=== PATIENT | male | born 1950 | race Caucasian/White ===

== ENCOUNTER 2022-09-21 19:54 | Emergency (ER) | payer OTHER, MEDICARE ==
[~2022-09-21] VITALS: Ht 174 cm; Wt 81.6 kg
[2022-09-21 20:01] VITALS: BP_SYST 163
--- NOTE | 2022-09-21 20:27 | NUR ---
Patient to ER bed 7 to gown for evaluation. Side rails up.
--- NOTE | 2022-09-21 20:27 | NUR ---
ER at bedside examining patient.
--- NOTE | 2022-09-21 20:27 | NUR ---
Pt C/O neck soreness s/p fall from Ladder AOX4 VSS Able to make needs known Family bedside Will continue to monitor
[2022-09-21 20:29] VITALS: BP_SYST 126
--- NOTE | 2022-09-21 21:39 | NUR ---
CT spine negative for acute pathology Pt DC per MD's order DC instructions given to pt Pt verbalized understsndings AOX4 VSS Able to make needs known Pt exited Ed in stable gait
== END 2022-09-21 21:39 | disposition home or self-care (01) ==
LOC: SED 19:54
DX: S13.4XXA Sprain of ligaments of cervical spine, initial encounter (principal); S00.93XA Contusion of unspecified part of head, initial encounter; J44.9 Chronic obstructive pulmonary disease, unspecified; W11.XXXA Fall on and from ladder, initial encounter; Y93.89 Activity, other specified; Y92.89 Other specified places as the place of occurrence of the external cause; Y99.8 Other external cause status
CPT/HCPCS: 70450-TC; 72125-TC; 76376; 99284

== ENCOUNTER 2024-03-07 08:42 | Emergency (ER) | payer OTHER, MEDICARE ==
[~2024-03-07] VITALS: Ht 172.7 cm; Wt 81.6 kg
[2024-03-07 08:45] VITALS: BP_SYST 137; PULSE 82; RESP 18; TEMP 98.1; O2SAT 94
[2024-03-07] MEDS ORDERED: CEPH-548 PO (09:25)
[2024-03-07 09:50] VITALS: BP_SYST 141; PULSE 66; RESP 20; TEMP 97.8; O2SAT 94
== END 2024-03-07 09:50 | disposition home or self-care (01) ==
LOC: SED 08:42
DX: S92.535A Nondisplaced fracture of distal phalanx of left lesser toe(s), initial encounter for closed fracture (principal); J44.9 Chronic obstructive pulmonary disease, unspecified; Z79.2 Long term (current) use of antibiotics; W22.8XXA Striking against or struck by other objects, initial encounter; Y93.89 Activity, other specified; Y92.89 Other specified places as the place of occurrence of the external cause; Y99.8 Other external cause status
CPT/HCPCS: 99283

== ENCOUNTER 2024-05-22 10:04 | Inpatient (IN) | payer OTHER, MEDICARE ==
[~2024-05-22] VITALS: Ht 172.7 cm; Wt 85.3 kg
[~2024-05-22 10:04] MED LIST: CEPH-548 PO
[2024-05-22 10:20] VITALS: BP_SYST 145; PULSE 66; RESP 18; TEMP 98.4; O2SAT 95
[2024-05-22 11:03] LABS: BASOPHILS # (AUTO) 0.1 K/uL (0.0-0.2); BASOPHILS % (AUTO) 1.4 % (0.0-2.0); EOSINOPHILS # (AUTO) 0.4 K/uL (0.0-0.4); EOSINOPHILS % (AUTO) 5.9 % (0.0-4.0); HEMATOCRIT 42.2 % (36-54); LYMPHOCYTES # (AUTO) 1.7 K/uL (1.0-5.5); LYMPHOCYTES % (AUTO) 24.4 % (20.5-51.5); MEAN CORPUSCULAR HEMOGLOBIN 28 pg (27-31); MEAN CORPUSCULAR HGB CONC 33 % (32-36); MEAN CORPUSCULAR VOLUME 84 fL (79.0-98.0); MONOCYTES # (AUTO) 0.9 K/uL (0.0-1.0); MONOCYTES % (AUTO) 12.1 % (1.7-9.3); NEUTROPHILS % (AUTO) 56.2 % (40.0-70.0); PLATELET COUNT (AUTO) 323 K/uL (130-430); RED BLOOD CELL COUNT(AUTO) 5.05 MIL/uL (4.2-6.2); RED CELL DISTRIBUTION WIDTH 15.6 % (9.0-15.0); WHITE BLOOD COUNT (AUTO) 7.1 K/uL (4.8-10.8)
[2024-05-22] MEDS: cefTRIAXone 1 GM IVPB PREMIX 50 ML IV ONE (11:15)
[2024-05-22 11:21] LABS: ANION GAP 8 (5-15); CALCIUM 8.9 mg/dL (8.4-11.0); CARBON DIOXIDE 27 mmol/L (23-29); CHLORIDE 107 mmol/L (98-107); CREATININE 0.99 mg/dL (0.55-1.30); GLUCOSE 93 mg/dL (74-106); POTASSIUM 4.1 mmol/L (3.5-5.1); SODIUM SERUM 142 mmol/L (136-145); UREA NITROGEN, BLOOD 14 mg/dL (8-21)
[2024-05-22] MEDS ORDERED: MORPHINE 2 MG/ML INJ. SYRINGE IVP PRN (13:15)
[2024-05-22] MEDS ORDERED: ONDANSETRON HCL 4 MG/2 ML VIAL IVP PRN (13:15)
[2024-05-22] MEDS ORDERED: MONT-40 PO (14:06)
[2024-05-22] MEDS ORDERED: ROSU40TA PO (14:08)
[2024-05-22] MEDS ORDERED: FLUT1DIS5 IH (14:09)
[2024-05-22 16:00] VITALS: BP_SYST 127; PULSE 60; RESP 18; TEMP 97.9; O2SAT 95
[2024-05-22 17:47] VITALS: BP_SYST 127; PULSE 60; RESP 18; TEMP 97.9; O2SAT 95
[2024-05-22] MEDS: PIPERACILLIN/TAZO 3.375/DEX-IS 50 ML IV SCH (18:35)
[2024-05-22 20:00] VITALS: BP_SYST 126; RESP 20; TEMP 97.9; O2SAT 93
[2024-05-22] MEDS: HEPARIN SODIUM,PORCINE 5,000 UNITS/ML VIAL SUBCUT SCH (21:00)
[2024-05-22] MEDS: ceFAZolin SODIUM 2 GM in D5W 100 ML IV SCH (23:44)
[2024-05-23] VITALS: BP_SYST 128; PULSE 60; RESP 20; TEMP 97.5; O2SAT 92
[2024-05-23 06:33] LABS: BASOPHILS # (AUTO) 0.1 K/uL (0.0-0.2); BASOPHILS % (AUTO) 1.3 % (0.0-2.0); EOSINOPHILS # (AUTO) 0.4 K/uL (0.0-0.4); EOSINOPHILS % (AUTO) 6.6 % (0.0-4.0); HEMATOCRIT 38.5 % (36-54); HEMOGLOBIN 12.9 g/dL (14.0-18.0); LYMPHOCYTES # (AUTO) 1.6 K/uL (1.0-5.5); LYMPHOCYTES % (AUTO) 25.5 % (20.5-51.5); MEAN CORPUSCULAR HEMOGLOBIN 28 pg (27-31); MEAN CORPUSCULAR HGB CONC 34 % (32-36); MEAN CORPUSCULAR VOLUME 83 fL (79.0-98.0); MONOCYTES # (AUTO) 0.7 K/uL (0.0-1.0); MONOCYTES % (AUTO) 10.2 % (1.7-9.3); NEUTROPHILS # (AUTO) 3.6 K/uL (1.8-7.7); NEUTROPHILS % (AUTO) 56.4 % (40.0-70.0); PLATELET COUNT (AUTO) 278 K/uL (130-430); RED BLOOD CELL COUNT(AUTO) 4.63 MIL/uL (4.2-6.2); RED CELL DISTRIBUTION WIDTH 15.2 % (9.0-15.0); WHITE BLOOD COUNT (AUTO) 6.4 K/uL (4.8-10.8)
[2024-05-23 06:56] LABS: ALANINE AMINOTRANSFERASE 26 U/L (12-78); ALBUMIN 3.2 g/dL (3.4-4.8); ANION GAP 7 (5-15); ASPARTATE AMINOTRANSFERASE 20 U/L (10-37); CALCIUM 8.3 mg/dL (8.4-11.0); CARBON DIOXIDE 28 mmol/L (23-29); CHLORIDE 107 mmol/L (98-107); GLUCOSE 88 mg/dL (74-106); PHOSPHORUS 4.5 mg/dL (2.7-4.5); POTASSIUM 4.1 mmol/L (3.5-5.1); SODIUM SERUM 142 mmol/L (136-145); TOTAL BILIRUBIN 0.5 mg/dL (0.0-1.0); TOTAL PROTEIN, SERUM 6.3 g/dL (6.4-8.3); UREA NITROGEN, BLOOD 12 mg/dL (8-21)
[2024-05-23 07:56] VITALS: O2SAT 94
[2024-05-23 08:09] VITALS: BP_SYST 128; PULSE 54; RESP 16; TEMP 97.7; O2SAT 94
[2024-05-23 11:02] VITALS: BP_SYST 127; PULSE 59; RESP 16; TEMP 97.4; O2SAT 93
[2024-05-23 11:08] LABS: INR 1.1 (0.80-1.20); PROTHROMBIN TIME 11.6 SECS (9.5-12.5)
[2024-05-23] MEDS ORDERED: fentaNYL CITRATE/PF 100 MCG/2 ML AMP ONE (14:02)
[2024-05-23] MEDS ORDERED: MIDAZOLAM HCL 2 MG/2 ML VIAL (VERSED) ONE (14:02)
[2024-05-23] MEDS ORDERED: ONDANSETRON HCL 4 MG/2 ML VIAL IVP PRN (14:45)
[2024-05-23] MEDS ORDERED: LABETALOL 100 MG/ 20ML VIAL IVP PRN (14:45)
[2024-05-23] MEDS ORDERED: NALOXONE HCL 0.4 MG/ML AMP (NARCAN) IVP PRN ×2 (14:45)
[2024-05-23] MEDS ORDERED: ePHEDrine sulfate 50 MG/ML VIAL IVP PRN (14:45)
[2024-05-23] MEDS ORDERED: METOCLOPRAMIDE HCL 10 MG/2 ML VIAL IVP PRN (14:45)
[2024-05-23] MEDS ORDERED: HYDROmorphone 1 MG/ML INJ. CARTRIDGE IVP PRN ×3 (14:45)
[2024-05-23 15:20] VITALS: BP_SYST 123; PULSE 60; RESP 16; TEMP 98.1; O2SAT 93
[2024-05-23 16:34] VITALS: BP_SYST 123; PULSE 61; RESP 20; TEMP 98.1; O2SAT 93
== END 2024-05-23 18:45 | disposition home health service (06) | DRG 516 ==
LOC: SED 10:04 → SMU 13:07
PROVIDERS: ADMIT Student in an Organized Health Care Education/Training Program; ATTEND Student in an Organized Health Care Education/Training Program
PROC: 0QBR0ZZ Excision of Left Toe Phalanx, Open Approach (ICD-10-PCS; principal; 2024-05-23 13:57)
DX: M86.8X7 Other osteomyelitis, ankle and foot (principal); L02.612 Cutaneous abscess of left foot; E78.5 Hyperlipidemia, unspecified; L03.032 Cellulitis of left toe; J44.9 Chronic obstructive pulmonary disease, unspecified; Z79.899 Other long term (current) drug therapy; Z88.8 Allergy status to other drugs, medicaments and biological substances
CPT/HCPCS: 36415; 71045; 80048; 80053; 83605; 83735; 83880; 84100; 84484; 85025; 85610; 85651; 85730; 87040; 87081; 88304; 88305; 88311; 93005; 99285; J0696; J2250; J2543; J3010; J7060